=== PATIENT | female | born 1965 | race Caucasian/White ===

== ENCOUNTER → 2020-04-08 | Outpatient (CLI) | payer OTHER | LOC: SJCVCIMAG 06:58 | PROVIDERS: ATTEND Internal Medicine Cardiovascular Disease | DX: Z01.818 Encounter for other preprocedural examination (principal); R07.89 Other chest pain; R94.31 Abnormal electrocardiogram [ECG] [EKG] ==

== ENCOUNTER → 2021-04-10 | Outpatient (CLI) | payer OTHER | LOC: CAT 10:48 | PROVIDERS: ATTEND Internal Medicine Cardiovascular Disease | DX: Z13.6 Encounter for screening for cardiovascular disorders (principal); E78.00 Pure hypercholesterolemia, unspecified; I25.10 Atherosclerotic heart disease of native coronary artery without angina pectoris ==